=== PATIENT | male | born 1960 | race African-American/Black ===

== ENCOUNTER 2016-09-06 06:23 | Emergency (ER) | payer OTHER ==
[~2016-09-06] VITALS: Ht 172.7 cm; Wt 104.3 kg
[2016-09-06 06:37] VITALS: BP 160/78
[2016-09-06] MEDS ORDERED: IBUP200T77 PO (06:59)
--- NOTE | 2016-09-06 06:59 | PHYS DOC ---
Past Medical History Past Medical History: Hypertension Past Surgical History: Other Additional Past Surgical Histo: bypass 2014 Alcohol Use: Occasionally Drug Use: None Adult General Chief Complaint Chief Complaint: FOOT INJURY PAIN HPI HPI 56-year-old male presenting to the emergency department today after shoveling concrete yesterday. He reports having left foot pain. His pain is sharp moderate nonradiating and without alleviating factors. He reports pushing the shovel with his left foot multiple times throughout the day while he was moving concrete. Review of systems is negative for ankle pain knee pain hip pain abdominal pain or chest pain. All other review of systems is negative unless otherwise noted in history of present illness. ED course: 56-year-old gentleman with left foot pain after doing concrete work. X-ray obtained. He was given ibuprofen in the emergency department for pain. The patient was then discharged home in stable condition to follow up with their primary care physician over the next 2-3 days. They were to return if their symptoms worsened or if they were concerned for any reason. [id number] discharge instructions and return precautions were given. Patient's questions were answered to their satisfaction. Patient is comfortable plan. Review of Systems Review of Systems SEE ABOVE. Current Medications Current Medications Current Medications Medications (Trade) Dose Ordered Sig/Tyler Start Time Stop Time Status Last Admin Dose Admin Ibuprofen (Motrin) 400 mg 1X ONCE 09/06/16 06:45 09/06/16 06:46 UNV Allergies Allergies Allergies Coded Allergies Type Severity Reaction Last Updated Verified No Known Drug Allergies 09/06/16 No Physical Exam Physical Exam SEE ABOVE Constitutional: Well developed, well nourished, no acute distress, non-toxic appearance. [] HENT: Normocephalic, atraumatic, bilateral external ears normal, oropharynx moist, no oral exudates, nose normal. [] Eyes: PERRLA, EOMI, conjunctiva normal, no discharge. [] Neck: Normal range of motion, no tenderness, supple, no stridor. [] Cardiovascular:Heart rate regular rhythm, no murmur [] Lungs & Thorax: Bilateral breath sounds clear to auscultation [] Abdomen: Bowel sounds normal, soft, no tenderness, no masses, no pulsatile masses. [] Skin: Warm, dry, no erythema, no rash. [] Back: No tenderness, no CVA tenderness. [] Extremities: Left foot is normal in appearance without deformity. No ecchymosis laceration or abrasions of the skin. Mild tenderness to palpation of the left lateral metatarsals. No ecchymosis or swelling present. 2 second cap refill distally. Normal neurovascular status. Ankle exam is unremarkable. Nontender mild lateral and medial malleolus. Nontender knee proximally. Neurologic: Alert and oriented X 3, normal motor function, normal sensory function, no focal deficits noted. [] Psychologic: Affect normal, judgement normal, mood normal. [] Current Patient Data Vital Signs Vital Signs Date Time Temp Pulse Resp B/P (MAP) Pulse Ox O2 Delivery O2 Flow Rate FiO2 09/06/16 06:37 98.6 57 20 96 Room Air 98.6 EKG EKG [] Radiology/Procedures Radiology/Procedures [] Course & Med Decision Making Course & Med Decision Making Pertinent Labs and Imaging studies reviewed. (See chart for details) [] Dragon Disclaimer Dragon Disclaimer This electronic medical record was generated, in whole or in part, using a voice recognition dictation system. Departure Departure Impression: Primary Impression: Left foot pain Disposition: 01 HOME, SELF-CARE Condition: STABLE Referrals: GLENDA LONGO (PCP) Patient Instructions: Foot Contusion, [id number] Additional Instructions: Thank you for allowing us to participate in your care today. Followup with your primary care physician in 3 days if your symptoms do not improve. Call your Primary Doctor tomorrow and inform them of your visit today. If you do not have a primary care provider you can ask for a list of our primary care providers. Return to the emergency department you have any new or concerning findings. This should be evaluated by the primary care physician and any necessary consulting services for continued management within a few days after discharge. Return to emergency room if you have any new or concerning symptoms including but not limited to fever, chills, nausea, vomiting, intractable pain, any new rashes, chest pain, shortness of air, uncontrolled bleeding, difficulty breathing, and/or vision loss. Scripts Ibuprofen (IBUPROFEN) 200 Mg Tablet 200 MG PO PRN Q6HRS Y for INFLAMMATION, #30 TAB Prov: OSMIN DONG MD 09/06/16 OSMIN DONG MD Sep 06, 2016 06:59
[2016-09-06] MEDS ORDERED: IBUPROFEN 400 MG TABLET. PO ONE (07:15)
--- NOTE | 2016-09-06 07:15 | RAD ---
Left foot, 3 views, 09/06/2016: History: Foot pain, injury No fracture or dislocation is identified. There is minimal spurring at the midfoot level. There is moderate subcutaneous edema. IMPRESSION: No acute bony abnormality is detected.
== END 2016-09-06 07:25 | disposition home or self-care (01) ==
LOC: ER 06:23
DX: M79.672 Pain in left foot (principal); I10 Essential (primary) hypertension; Z95.1 Presence of aortocoronary bypass graft; X50.9XXA Other and unspecified overexertion or strenuous movements or postures, initial encounter; Y93.89 Activity, other specified; Y99.8 Other external cause status; Y92.89 Other specified places as the place of occurrence of the external cause
CPT/HCPCS: 73630; 99284

== ENCOUNTER → 2020-11-29 | Outpatient (CLI) | payer BC ==
[~2020-11-29] MED LIST: IBUP200T77 PO
--- NOTE | 2020-11-30 13:37 | RAD ---
EXAM: XR LUMBAR SPINE 2-3V 11/29/2020 3:42 PM CLINICAL INDICATION: Bilateral lower extremity pain COMPARISON: None TECHNIQUE: 2 views of the lumbar spine FINDINGS: There 5 nonrib-bearing lumbar vertebral bodies. No acute fracture. Alignment is normal. Th ere is straightening of lordosis. Slight leftward curvature at L3-L4. There is mild to moderate asymm etric disc space narrowing with endplate sclerosis and anterior osteophytes at L3-L4. The remaining d isc spaces are maintained. Small amount of degenerative endplate changes at L4-L5. No significant fac et arthrosis. There are calcifications in the abdominal aorta. IMPRESSION: Mild degenerative disc disease at L3-L4 and L4-L5. Electronically signed by: Claudia Bedoya MD (11/30/2020 1:35 PM) [id number]
== END ==
LOC: RAD 15:12
PROVIDERS: ATTEND Internal Medicine
DX: M51.36 Other intervertebral disc degeneration, lumbar region (principal); M48.061 Spinal stenosis, lumbar region without neurogenic claudication; M40.46 Postural lordosis, lumbar region; M25.78 Osteophyte, vertebrae; I70.0 Atherosclerosis of aorta; M79.604 Pain in right leg; M79.605 Pain in left leg
CPT/HCPCS: 72100

== ENCOUNTER → 2021-02-01 | Outpatient (CLI) | payer BC ==
[~2021-02-01] MED LIST changes: +ALLO100T PO; +AMLO-187 PO; +ASPI81TA59 PO; +CYCL10TA19 PO; +DOXA4TAB2 PO; +DULA1.5P SQ; +EMPA10TA PO; +ICOS1CAP PO; +LISI-130 PO; +MELO15TA23 PO; +METF850T8 PO; +TAMS0.4C97 PO; +TRAM50TA PO
--- NOTE | 2021-02-01 15:25 | PDOC1 ---
INITIAL PAIN CONSULT DATE OF SERVICE: DOS: DATE: 02/01/21 TIME: 15:20 CHIEF COMPLAINT: Chief Complaint: Low back and bilateral lower extremity pain HISTORY OF PRESENT ILLNESS: 60-year-old male presents history of pain low back and bilateral lower extremities right greater than left present bilaterally for 6 months not the result of any specific injury or accident that he is aware of but getting worse with walking especially standing or standing still patient reports he can walk about 50 to 75 yards where he has to stop and sit down to decrease the pain for about 2 to 3 minutes patient reports the pain is constant in the back stabbing the legs change during the day worse with walking standing numbness in the legs as well getting worse on the right posterior gluteus posterior lateral thigh lateral anterior thigh anteromedial thigh medial lower leg into the ankle on the left side patient reports aching pain in the back as well as the legs as well patient reports it wakes him from sleep very rarely better with sitting or laying down does not affect his bowel bladder control with any incontinence but some increased frequency. Patient reports does affect his ability to walk is not use any assistive devices patient has been doing stretching strength exercises on his own but is had no formal therapies at this time patient is taking tramadol in the morning which does help decrease the pain by about 20 to 30% patient rates his disability rating 0-10 10 being the worst is a 9 with family home responsibilities and occupation 10 with recreation 6 with social activity 5 with self-care and to light support activities patient did have an MRI scan of the lumbar spine showing L3-4 partial laminectomy defect on the right with diffuse disc bulge and canal stenosis with moderate to severe with lateral recess narrowing which is greater on the left and high-grade right greater than left foraminal narrowing L4-5 shows diffuse disc bulge with mild to moderate canal stenosis and lateral recess narrowing bilaterally as well with moderate bilateral foraminal narrowing. Patient reports no bowel or bladder incontinence. PAST MEDICAL HISTORY: PMH: Hypertension, type 2 diabetes, coronary disease, hearing loss PREVIOUS SURGERIES: Past Surgical Hx: Coronary artery bypass grafting CURRENT MEDICATIONS: Current Meds: Active Scripts Medications Dose Route/Sig Max Daily Dose Days Date Category Cardura (Doxazosin Mesylate) 4 Mg Tablet 1 Tab PO DAILY 02/01/21 Reported Trulicity (Dulaglutide) 1.5 Mg/0.5 Ml Pen.injctr 1.5 Mg SQ WEEKLY 02/01/21 Reported Lisinopril 40 Mg Tablet 1 Tab PO DAILY 02/01/21 Reported Jardiance (Empagliflozin) 10 Mg Tablet 10 Mg PO DAILY 02/01/21 Reported Meloxicam 15 Mg Tablet 1 Tab PO DAILY 30 02/01/21 Reported Cyclobenzaprine Hcl 10 Mg Tablet 1 Tab PO TID 02/01/21 Reported Amlodipine Besylate 10 Mg Tablet 10 Mg PO DAILY 02/01/21 Reported Allopurinol 100 Mg Tablet 1 Tab PO DAILY 02/01/21 Reported Metformin Hcl 850 Mg Tablet 850 Mg PO [id number] 02/01/21 Reported Flomax (Tamsulosin Hcl) 0.4 Mg Cap.er.24h 0.4 Mg PO DAILY 02/01/21 Reported Vascepa (Icosapent Ethyl) 1 Gm Capsule 2 Cap PO BID 30 02/01/21 Reported Tramadol Hcl 50 Mg Tablet 50 Mg PO Q6HRS PRN 02/01/21 Reported Children's Aspirin (Aspirin) 81 Mg Tab.chew 1 Tab PO DAILY 30 02/01/21 Reported ALLERGIES; Allergies: Coded Allergies: No Known Drug Allergies (Unverified , 09/06/16) FAMILY HISTORY: Family Hx: Hypertension and heart disease SOCIAL HISTORY: Social Hx: Patient drinks alcohol about 3 times weekly does not smoke not use any illegal is recreational drugs is lives with spouse lives locally in [facility] and works on a [employer] REVIEW OF SYSTEMS: ROS: Positive for those items mentioned in history of present illness, all systems are reviewed, otherwise negative ,and are complete full and well-documented on patient's chart. PHYSICAL EXAM: VS: Blood pressures 154/97 pulse 73 respirations 18 temperature 98.7 F height 5 feet 9 inches weight 226 pounds. PE: PHYSICAL EXAMINATION: GENERAL: The patient is awake, alert, oriented, appropriate, very pleasant in demeanor HEENT: Shows normocephalic, atraumatic. Extraocular movements are intact and symmetrical. Oral cavity: Mucous membranes moist and pink. Dentition is intact. NECK: Shows anterior throat supple without palpable lymphadenopathy noted. Swallow reflex symmetrical. CHEST: Shows normal on inspection. Breath sounds are clear bilaterally, distant no rales rhonchi or wheezes auscultated. HEART: Shows S1, S2 clear. No murmurs auscultated. ABDOMEN: Soft, nontender, nondistended, obese. No palpable organomegaly is noted. BACK: Shows spine grossly in the midline. Normal-appearing cervical lordotic curvature. There is slightly increased thoracic kyphosis, some flattening of the lumbar lordotic curvature. Lumbar paraspinous muscles show symmetrical on inspection, on palpation shows some moderate tenderness diffusely throughout the upper, middle and lower distribution of the paraspinous muscles bilaterally and also into the lower thoracic paraspinous musculature, firm and tender, but without specific trigger points, without radiation of pain. The patient has good rotational motion of the lumbar spine, both laterally as well as extension and flexion without significant difficulty. No tenderness over the spinous processes, sacrum or sacroiliac regions. EXTREMITIES: Lower extremities show deep tendon reflexes 2+ in the patellar and tendo calcaneus tendons. Motor exam is 4 on a scale of 5 with right dorsiflexion, extension, quadriceps and hamstring flexion and 5/5 on the left. Peripheral pulses are 1+ posterior tibial. No peripheral edema is noted bilaterally. Lower extremities are warm and dry to touch, equal in color and appearance. Straight leg raise noted to be negative bilaterally. Gaenslen's and Vishnu's maneuvers are negative bilateral as well. The patient is able to stand, stand on his toes that significant difficulty loss of balance walks with a normal-appearing gait exam. Walks with a normal gait does not appear to favor the right or left lower extremity is not using any assistive devices to ambulate. SKIN: Shows warm and dry, good turgor. No edema. No sores, rashes or bruising throughout. IMPRESSION: Impression: 60-year-old male with approximate 6-month history low back and bilateral lower extremity pain right greater than left and radicular fashion MRI scan lumbar spine as noted Hypertension Type 2 diabetes Plan: Options were discussed the patient occluding somatic management physical therapies interventional techniques. Patient elects treatment techniques. We discussed a lumbar epidural steroid injections description as well as anatomical model to describe the procedure. Patient would like to reschedule for follow-up to do this after he discusses with his spouse and we will make those arrangements. HUGH HAQ MD Feb 01, 2021 15:25
== END | disposition home or self-care (01) ==
LOC: PNCL 14:20
PROVIDERS: ATTEND Anesthesiology
DX: M54.50 Low back pain, unspecified (principal); M79.605 Pain in left leg; M79.604 Pain in right leg; I10 Essential (primary) hypertension; E11.9 Type 2 diabetes mellitus without complications; I25.10 Atherosclerotic heart disease of native coronary artery without angina pectoris; Z79.82 Long term (current) use of aspirin; Z79.84 Long term (current) use of oral hypoglycemic drugs; Z79.899 Other long term (current) drug therapy; Z98.890 Other specified postprocedural states; Z82.49 Family history of ischemic heart disease and other diseases of the circulatory system
CPT/HCPCS: G0463

== ENCOUNTER → 2021-02-17 | Outpatient (CLI) | payer BC ==
[~2021-02-17] MED LIST changes: +IOHEXOL 180 MG/ML 10 ML VIAL. ONE; +methylPREDNISolone ACETATE 40 MG/ML VIAL. ONE; +methylPREDNISolone ACETATE 80 MG/ML VIAL. ONE
--- NOTE | 2021-02-17 08:45 | PDOC ---
Progress Note - Pain Clinic Date of Service: DOS: DATE: 02/17/21 TIME: 08:41 Diagnosis: Dx: Lumbar radiculopathy with lumbar degenerative disease lumbar spinal stenosis and lumbar postlaminectomy syndrome History or Present Illness: HPI: 60-year-old male with pain low back and bilateral lower extremities posterior gluteus posterior thigh posterior lateral thigh lateral anterior thigh medial thigh bilaterally right and left somewhat worse on the right side but still with pain in the left side as well patient reports worse with walking standing change positions better with sitting or laying down generally is not awakening from sleep at night patient reports is an 8 on a scale of 10 on average and its least is a 9 at its worst and is an 8 today patient scribes is tight in the back cramping and shooting in the legs on and off in intensity again worse with standing walking better with sitting or laying down patient reports no loss of motor function no bowel or bladder incontinence. Patient reports recent blood sugars have been above his normal range we discussed this with him and he will follow up with his primary physician regarding his Metformin and blood sugar history more in depth for potential need for adjustment as well. Physical Exam: VS: Blood pressure is 136/89 pulse 57 respirations 18 temperature 90.3 F height 5 feet 8 inches weight 221 pounds PE: PHYSICAL EXAMINATION: GENERAL: The patient is awake, alert, oriented, appropriate, very pleasant in demeanor HEENT: Shows normocephalic, atraumatic. Extraocular movements are intact and symmetrical. Oral cavity: Mucous membranes moist and pink. Dentition is intact. NECK: Shows anterior throat supple without palpable lymphadenopathy noted. Swallow reflex symmetrical. CHEST: Shows normal on inspection. Breath sounds are clear bilaterally. HEART: Shows S1, S2 clear. No murmurs auscultated. ABDOMEN: Soft, nontender, nondistended. No palpable organomegaly is noted. BACK: Shows spine grossly in the midline. Normal-appearing cervical lordotic curvature. There is slightly increased thoracic kyphosis, some flattening of the lumbar lordotic curvature, with well-healed midline surgical scar. Lumbar paraspinous muscles show symmetrical on inspection, on palpation shows some moderate tenderness diffusely throughout the upper, middle and lower distribution of the paraspinous muscles without specific trigger points, without radiation of pain. The patient has good rotational motion of the lumbar spine, both laterally as well as extension and flexion without significant difficulty. EXTREMITIES: Lower extremities show deep tendon reflexes 2+ in the patellar and tendo calcaneus tendons. Motor exam is 4 on a scale of 5 with right dorsiflexion, extension, quadriceps and hamstring flexion and 5/5 on the left. Peripheral pulses are 1+ posterior tibial. No peripheral edema is noted bilaterally. Lower extremities are warm and dry to touch, equal in color and appearance. SKIN: Shows warm and dry, good turgor. No edema. No sores, rashes or bruising throughout. Procedure: Procedure: Options discussed with patient. Patient chart was reviewed his current medication regimen updated current review of systems updated today as well. We will proceed with a lumbar epidural steroid injection today with fluoroscopic guidance. Risks were discussed including but not limited to: Bleeding, infection, possibility of epidural hematoma and subsequent neurological compromise, dural puncture, headaches, spinal cord and/or nerve damage, side effects of steroid medication, and poor results regarding pain control. Patient understands and wished to proceed. Patient will return to the clinic in approximate 2 weeks for follow-up, was counseled as return appointment, activity level, and side effect to be aware of. Medication Injected: Med Injected: Procedure is lumbar epidural steroid injection under local anesthetic using sterile prep and drape at the L4-5 level using C-arm fluoroscopic guidance in both AP and lateral views medications injected is 120 mg Depo-Medrol +10mL preservative-free normal saline and 2 mL contrast- condition at discharge is stable patient tolerated procedure well had no complications. Condition at Discharge: Condition at Discharge: Condition at discharge stable, patient tolerated the procedure well and had no complications. HUGH HAQ MD Feb 17, 2021 08:45
--- NOTE | 2021-02-17 08:46 | PDOC4 ---
Procedure Note: ICD 10 Code: ICD 10 Code: M54.16 M51.36 M4 8.06 M 96.1 Procedure Note: Patient was consented for lumbar epidural steroid injection with fluoroscopic guidance. Risks were discussed including but not limited to: Bleeding, infection, possibility of epidural hematoma and subsequent neurological compromise, dural puncture, headaches, spinal cord and/or nerve damage, side effects of steroid medication, and poor results regarding pain control. Patient understands and wished to proceed. Procedure is lumbar epidural steroid injection under local anesthetic using sterile prep and drape at the L4-5 level using C-arm fluoroscopic guidance in both AP and lateral views medications injected is 120 mg Depo-Medrol +10mL preservative-free normal saline and 2 mL contrast- condition at discharge is stable patient tolerated procedure well had no complications. HUGH HAQ MD Feb 17, 2021 08:45
== END | disposition home or self-care (01) ==
LOC: PNCL 08:16
PROVIDERS: ATTEND Anesthesiology
DX: M51.16 Intervertebral disc disorders with radiculopathy, lumbar region (principal); M48.061 Spinal stenosis, lumbar region without neurogenic claudication; Z79.899 Other long term (current) drug therapy
CPT/HCPCS: 62323; J1030; J1040; Q9965

== ENCOUNTER → 2021-03-17 | Outpatient (CLI) | payer BC ==
[~2021-03-17] MED LIST changes: -IOHEXOL 180 MG/ML 10 ML VIAL. ONE; -methylPREDNISolone ACETATE 40 MG/ML VIAL. ONE; -methylPREDNISolone ACETATE 80 MG/ML VIAL. ONE
--- NOTE | 2021-03-17 08:54 | PDOC ---
Progress Note - Pain Clinic Date of Service: DOS: DATE: 03/17/21 TIME: 08:50 Diagnosis: Dx: Lumbar radiculopathy with lumbar degenerative disease lumbar spinal stenosis and lumbar postlaminectomy syndrome Type 2 diabetes Hypertension History or Present Illness: HPI: 60-year-old male returns for follow-up status post lumbar epidural steroid injection x1. Patient reports 90 to 95% improvement and still lasting patient reports he is beginning to feel the pain returning but only very slightly in the low back and into the bilateral lower extremities. Patient reports he can increase activity with greater distance walking doing household activities work activities travel with greater ease and comfort sleeping better at night does not awaken him from sleep. Patient rates his pain as a 5 on a scale 10 is worse over the past week 3 on average 3 to [place] is a 3 today patient describes it as tight and aching across the low back some radiation to the lower extremities as it was previously posterior gluteus lateral thighs anterior thighs begin only very intermittently patient reports no bowel or bladder incontinence. Patient is quite pleased with his progress thus far although reports returning pain but very minimal at this time. Physical Exam: VS: Blood pressure is 147/83 pulse 57 respirations 18 temperature 98.7 F height 5 feet 8 inches weight is 227 pounds PE: PHYSICAL EXAMINATION: GENERAL: The patient is awake, alert, oriented, appropriate, very pleasant in demeanor HEENT: Shows normocephalic, atraumatic. Extraocular movements are intact and symmetrical. Oral cavity: Mucous membranes moist and pink. Dentition is intact. NECK: Shows anterior throat supple without palpable lymphadenopathy noted. Swallow reflex symmetrical. CHEST: Shows normal on inspection. Breath sounds are clear bilaterally, distant but no rales or rhonchi auscultated. HEART: Shows S1, S2 clear. No murmurs auscultated. ABDOMEN: Soft, nontender, nondistended. No palpable organomegaly is noted. BACK: Shows spine grossly in the midline. Normal-appearing cervical lordotic curvature. There is slightly increased thoracic kyphosis, some minor flattening of the lumbar lordotic curvature. Lumbar paraspinous muscles show symmetrical on inspection, on palpation shows some moderate tenderness diffusely throughout the upper, middle and lower distribution of the paraspinous muscles without specific trigger points, without radiation of pain. The patient has good rotational motion of the lumbar spine, both laterally as well as extension and flexion without significant difficulty. No tenderness over the spinous processes, sacrum or sacroiliac regions. EXTREMITIES: Lower extremities show deep tendon reflexes 2+ in the patellar and tendo calcaneus tendons. Motor exam is 4 on a scale of 5 with right dorsiflexion, extension, quadriceps and hamstring flexion and 5/5 on the left. Peripheral pulses are 1+ posterior tibial. No peripheral edema is noted bilaterally. Lower extremities are warm and dry to touch, equal in color and appearance. SKIN: Shows warm and dry, good turgor. No edema. No sores, rashes or bruising throughout. Procedure: Procedure: Options were discussed with patient. Patient's old chart was viewed as his current medication regimen updated current review of systems updated today as well. We will hold on further injections at this time patient doing quite a bit better patient is encouraged to increase his activity as tolerated also maintain stretching and strengthening exercises we discussed some specific exercises with him today as well patient will continue with oral analgesics as currently including meloxicam and cyclobenzaprine. Patient at this time will follow-up on a as needed basis. Medication Injected: Med Injected: None Condition at Discharge: Condition at Discharge: Condition at discharge is stable. HUGH HAQ MD Mar 17, 2021 08:54
== END | disposition home or self-care (01) ==
LOC: PNCL 08:09
PROVIDERS: ATTEND Anesthesiology
DX: M51.16 Intervertebral disc disorders with radiculopathy, lumbar region (principal); M48.061 Spinal stenosis, lumbar region without neurogenic claudication; M96.1 Postlaminectomy syndrome, not elsewhere classified; I10 Essential (primary) hypertension; E11.9 Type 2 diabetes mellitus without complications; Z79.82 Long term (current) use of aspirin; Z79.84 Long term (current) use of oral hypoglycemic drugs; Z79.899 Other long term (current) drug therapy; Z98.890 Other specified postprocedural states; Z72.89 Other problems related to lifestyle
CPT/HCPCS: 99212; G0463

== ENCOUNTER → 2021-06-02 | Outpatient (CLI) | payer BC ==
[~2021-06-02] MED LIST changes: +DEXAMETHASONE PRES.FREE 10 MG/ML VIAL. ONE; -EMPA10TA PO; +EMPA10TA3 PO; +IOHEXOL 180 MG/ML 10 ML VIAL. ONE
--- NOTE | 2021-06-02 09:07 | PDOC ---
Progress Note - Pain Clinic Date of Service: DOS: DATE: 06/02/21 TIME: 09:02 Diagnosis: Dx: Lumbar radiculopathy with lumbar degenerative disease lumbar spinal stenosis and lumbar postlaminectomy syndrome History or Present Illness: HPI: 61-year-old male returns for follow-up last seen March 17, 2021 after lumbar epidural steroid injection which was done February 17, 2021 and did very well with about 90% improvement for a few months following the injection patient reports over the past few weeks the pains began to return in the low back and now is different in the right hip is significantly painful with pain rating to the right groin as well as in the lateral thigh as well as the posterior aspect of the hips and legs in the gluteus thighs and into the calves patient reports the calves are now essentially equal right and left for the right side initially was more painful and feels "tight" patient reports its constant aching cramping burning can be shooting in the lower extremities well but the pain in the right hip is much more noticeable now and radiating to the right groin as well with walking and weightbearing patient reports is better with sitting or laying down generally does not awaken from sleep at night is coming much more noticeable on the right side which is a different pain than on his last visit. Patient reports no injury no stumbling reports that his legs do feel unstable at times when he is on his feet more than about 30minutes has not had any falls. Patient rates his pain as a 9 on scale 10 is worse over the past week 9 on average 8 its least and is a 8 today. Patient does have some significant fatigability of the right leg primarily versus the left. Patient reports no bowel or bladder incontinence. Physical Exam: VS: Blood pressure is 150/87 pulse 57 respirations 18 temperature is 98.4 F 5 feet 8 inches weight is 226 pounds. PE: PHYSICAL EXAMINATION: GENERAL: The patient is awake, alert, oriented, appropriate, very pleasant in demeanor HEENT: Shows normocephalic, atraumatic. Extraocular movements are intact and symmetrical. Oral cavity: Mucous membranes moist and pink. Dentition is intact. NECK: Shows anterior throat supple without palpable lymphadenopathy noted. Swallow reflex symmetrical. CHEST: Shows normal on inspection. Breath sounds are clear bilaterally, no rales or rhonchi auscultated. HEART: Shows S1, S2 clear. No murmurs auscultated. ABDOMEN: Soft, nontender, nondistended. No palpable organomegaly is noted. BACK: Shows spine grossly in the midline. Normal-appearing cervical lordotic curvature. There is slightly increased thoracic kyphosis, some flattening of t he lumbar lordotic curvature with well-healed midline surgical scar noted. Lumbar paraspinous muscles show symmetrical on inspection, on palpation shows some moderate tenderness diffusely throughout the upper, middle and lower distribution of the paraspinous muscles , but without specific trigger points, without radiation of pain. The patient has good rotational motion of the lumbar spine, both laterally as well as extension and flexion without significant difficulty. EXTREMITIES: Lower extremities show deep tendon reflexes 2+ in the patellar and tendo calcaneus tendons. Motor exam is 4 on a scale of 5 with right dorsiflexion, extension, quadriceps and hamstring flexion and 5/5 on the left. Peripheral pulses are 1+ posterior tibial. No peripheral edema is noted bilaterally. Lower extremities are warm and dry. Patient's right hip shows some moderate tenderness with external rotation with a mild positive Vishnu's sign on the right side only left side is negative. SKIN: Shows warm and dry, good turgor. No edema. No sores, rashes or bruising throughout. Procedure: Procedure: Options discussed with patient. Patient's old chart was reviewed his current medication regimen updated current review of systems updated today as well. We will proceed with a lumbar epidural steroid injection today with fluoroscopic guidance. Risks were discussed including but not limited to: Bleeding, infection, possibility of epidural hematoma and subsequent neurological compromise, dural puncture, headaches, spinal cord and/or nerve damage, side effects of steroid medication, and poor results regarding pain control. Patient understands and wished to proceed. Patient will return to clinic in approximately 2 weeks for follow-up, was counseled as to return appointment, activity level, and side effect to be aware of. Medication Injected: Med Injected: Procedure is lumbar epidural steroid injection under local anesthetic using sterile prep and drape at the L4-5 level using C-arm fluoroscopic guidance in both AP and lateral views medications injected is 20 mg dexamethasone +10mL preservative-free normal saline and 2 mL contrast- condition at discharge is stable patient tolerated procedure well had no complications. Condition at Discharge: Condition at Discharge: Condition at discharge stable, patient tolerated the procedure well and had no complications. HUGH HAQ MD Jun 02, 2021 09:07
--- NOTE | 2021-06-02 09:07 | PDOC4 ---
Procedure Note: ICD 10 Code: ICD 10 Code: M54.16 M51.36 M 48.06 M 96.1 Procedure Note: Patient was consented for lumbar epidural steroid injection fluoroscopic guidance. Risks were discussed including but not limited to: Bleeding, infection, possibility of epidural hematoma and subsequent neurological compromise, dural puncture, headaches, spinal cord and/or nerve damage, side effects of steroid medication, and poor results regarding pain control. Patient understands and wished to proceed. Procedure is lumbar epidural steroid injection under local anesthetic using s terile prep and drape at the L4-5 level using C-arm fluoroscopic guidance in both AP and lateral views medications injected is 20 mg dexamethasone +10mL preservative-free normal saline and 2 mL contrast- condition at discharge is stable patient tolerated procedure well had no complications. HUGH HAQ MD Jun 02, 2021 09:07
== END | disposition home or self-care (01) ==
LOC: PNCL 08:13
PROVIDERS: ATTEND Anesthesiology
DX: M51.16 Intervertebral disc disorders with radiculopathy, lumbar region (principal); M48.061 Spinal stenosis, lumbar region without neurogenic claudication; M96.1 Postlaminectomy syndrome, not elsewhere classified; Z79.82 Long term (current) use of aspirin; Z79.84 Long term (current) use of oral hypoglycemic drugs; Z79.899 Other long term (current) drug therapy; Z72.89 Other problems related to lifestyle
CPT/HCPCS: 62323; J1100; Q9965

== ENCOUNTER → 2021-07-04 | Outpatient (CLI) | payer BC ==
[~2021-07-04] MED LIST changes: -DEXAMETHASONE PRES.FREE 10 MG/ML VIAL. ONE; -IOHEXOL 180 MG/ML 10 ML VIAL. ONE
--- NOTE | 2021-07-04 15:02 | PDOC ---
Progress Note - Pain Clinic Date of Service: DOS: DATE: 07/04/21 TIME: 15:00 Diagnosis: Dx: Lumbar radiculopathy lumbar degenerative disease lumbar spinal stenosis lumbar postlaminectomy syndrome History or Present Illness: HPI: 61-year-old male returns for follow-up status post lumbar epidural steroid injection. Patient reports about 50% improvement in the low back and bilateral lower extremities with some tightness now more on the right than the left and present bilaterally in the posterior gluteus posterior thighs patient reports in the morning it is fairly comfortable but as the day goes on it gets much worse with activity standing walking and changing positions. Patient reports initially is doing much better with walking standing changing positions but now it is beginning to tighten back up to its original level pain. Patient reports no bowel or bladder incontinence no loss of motor function but significant fatigability lower extremities with increased activity. Patient reports pain is 8 on scale 10 is worst 8 on average 7 its least and is a 7 today. Patient reports aching and tight in the back aching dull and shooting and sharp in the legs mostly in the posterior gluteus posterior lateral thighs and anterior thighs as well as the posterior thighs. Patient reports no bowel or bladder incontinence. Physical Exam: VS: Blood pressure is 130/83 pulse 68 respirations 18 temperature is 98.3 F height is 5 feet 9 inches weight is 231 pounds. PE: PHYSICAL EXAMINATION: GENERAL: The patient is awake, alert, oriented, appropriate, very pleasant in demeanor HEENT: Shows normocephalic, atraumatic. Extraocular movements are intact and symmetrical. Oral cavity: Mucous membranes moist and pink. Dentition is intact. NECK: Shows anterior throat supple without palpable lymphadenopathy noted. Swallow reflex symmetrical. CHEST: Shows normal on inspection. Breath sounds are clear bilaterally. HEART: Shows S1, S2 clear. No murmurs auscultated. ABDOMEN: Soft, nontender, nondistended. No palpable organomegaly is noted. BACK: Shows spine grossly in the midline. Normal-appearing cervical lordotic curvature. There is slightly increased thoracic kyphosis, some mild flattening of the lumbar lordotic curvature. Lumbar paraspinous muscles show symmetrical on inspection, on palpation shows some moderate tenderness diffusely throughout the upper, middle and lower distribution of the paraspinous muscles without specific trigger points, without radiation of pain. The patient has good rota tional motion of the lumbar spine, both laterally as well as extension and flexion without significant difficulty. EXTREMITIES: Lower extremities show deep tendon reflexes 2+ in the patellar and tendo calcaneus tendons. Motor exam is 4 on a scale of 5 with right dorsiflexion, extension, quadriceps and hamstring flexion and 5/5 on the left. Peripheral pulses are 1+ posterior tibial. No peripheral edema is noted bilaterally. Lower extremities are warm and dry to touch, equal in color and appearance. SKIN: Shows warm and dry, good turgor. No edema. No sores, rashes or bruising throughout. Procedure: Procedure: Options were discussed with patient. Patient chart was reviewed his his current medication regimen updated current review of systems updated today as well. We will hold on further injections at this time as patient would like to wait to se e how the pain involves in the future but we will try a Medrol Dosepak in the meantime to see if we can maintain some level of comfort. Patient was given instructions well side effects beware with the new medication. Patient will follow up in approximately 2 weeks or as necessary. Medication Injected: Med Injected: None Condition at Discharge: Condition at Discharge: Condition at discharge is stable. HUGH HAQ MD July 04, 2021 15:02
== END | disposition home or self-care (01) ==
LOC: PNCL 14:00
PROVIDERS: ATTEND Anesthesiology
DX: M51.16 Intervertebral disc disorders with radiculopathy, lumbar region (principal); M48.061 Spinal stenosis, lumbar region without neurogenic claudication; M96.1 Postlaminectomy syndrome, not elsewhere classified; Z79.82 Long term (current) use of aspirin; Z79.84 Long term (current) use of oral hypoglycemic drugs; Z72.89 Other problems related to lifestyle
CPT/HCPCS: 99212; G0463